=== PATIENT | female | born 1965 | race Caucasian/White ===

== ENCOUNTER 2016-11-23 11:34 | Inpatient (IN) | payer OTHER ==
[~2016-11-23] VITALS: Ht 160 cm; Wt 68.2 kg
[2016-11-23] MEDS ORDERED: SOD CHLORIDE 0.9% 1,000 ML IV STA (11:47)
[2016-11-23] MEDS ORDERED: ONDANSETRON 4 MG INJ IV STA (11:47)
[2016-11-23] MEDS ORDERED: morphine 4 MG/ML VIAL IV STA ×2 (11:47→12:20)
--- NOTE | 2016-11-23 11:56 | ERD ---
ER Documentation Chief Complaint Date/Time DATE: 11/23/16 TIME: 11:55 Chief Complaint ABDOMINAL PAIN WITH NAUSEA HPI Patient is a 51-year-old female who presents with sudden onset, constant, severe left flank pain radiating to the left inguinal area. Symptoms began 30 minutes ago. The patient states that she has an urge to urinate but has not been able to. She denies hematuria or dysuria. She denies fever or vomiting. ROS All systems reviewed and are negative except as per history of present illness. Medications Home Meds Active Scripts Cephalexin* (Cephalexin*) 500 Mg Capsule, 500 MG PO Q6 for 7 Days, #28 CAP Prov:DAMIÁN BARNES MD 11/23/16 Ibuprofen* (Motrin*) 400 Mg Tab, 400 MG PO Q6H Y for PAIN, #20 TAB Prov:DAMIÁN BARNES MD 11/23/16 Tamsulosin Hcl* (Flomax*) 0.4 Mg Cap.er.24h, 0.4 MG PO DAILY, #14 CAP Prov:DAMIÁN BARNES MD 11/23/16 Ondansetron (Ondansetron Odt) 4 Mg Tab.rapdis, 4 MG PO Q6H Y for NAUSEA AND/OR VOMITING, #15 TAB Prov:DAMIÁN BARNES MD 11/23/16 Oxycodone HCl/Acetaminophen (Percocet 5-325 mg Tablet) 1 Each Tablet, 1 EACH PO Q4H WHILE AWAKE, #16 TAB Prov:DAMIÁN BARNES MD 11/23/16 Allergies Allergies: Coded Allergies: No Known Allergy (Unverified , 11/23/16) PMhx/Soc Past medical history: Breast cancer, cholelithiasis Past surgical history: Mastectomy Social history: Smokes cigarettes, denies alcohol FmHx Family History: No coronary disease, No diabetes Physical Exam Vitals Vital Signs Date Time Temp Pulse Resp B/P Pulse Ox O2 Delivery O2 Flow Rate FiO2 11/23/16 14:05 97.8 50 20 158/78 100 11/23/16 11:38 97.0 59 20 203/93 100 Physical Exam Const: Alert, in moderate distress Head: Atraumatic Eyes: Normal Conjunctiva, No pallor, no icterus ENT: Normal External Ears, Nose and Mouth. Mucous membranes moist Neck: Full range of motion..~ No meningismus. Resp: Clear to auscultation bilaterally, No wheezes, no rales Cardio: Regular rate and rhythm, no murmurs Abd: Soft, non tender, non distended. Skin: No petechiae or rashes Back: No midline or flank tenderness Ext: No cyanosis, or edema Neur: Awake and alert, Cranial nerves II through XII intact bilaterally, strength and sensation full in 4 extremities. Psych: Normal Mood and Affect Result Diagram: 11/23/16 1200 11/23/16 1200 Results 24 hrs Laboratory Tests Test 11/23/16 12:00 11/23/16 12:35 White Blood Count 5.410^3/ul Red Blood Count 4.6810^6/ul Hemoglobin 11.8g/dl Hematocrit 37.6% Mean Corpuscular Volume 80.3fl Mean Corpuscular Hemoglobin 25.2pg Mean Corpuscular Hemoglobin Concent 31.4g/dl Red Cell Distribution Width 19.1% Platelet Count 56160^3/UL Mean Platelet Volume 9.6fl Neutrophils % 50.1% Lymphocytes % 37.1% Monocytes % 9.7% Eosinophils % 1.8% Basophils % 0.9% Nucleated Red Blood Cells % 0.0/100WBC Neutrophils # 2.710^3/ul Lymphocytes # 2.010^3/ul Monocytes # 0.510^3/ul Eosinophils # 0.110^3/ul Basophils # 0.110^3/ul Nucleated Red Blood Cells # 0.010^3/ul Sodium Level 140mmol/L Potassium Level 3.9mmol/L Chloride Level 107mmol/L Carbon Dioxide Level 22mmol/L Anion Gap 15 Blood Urea Nitrogen 8mg/dl Creatinine 0.78mg/dl Glucose Level 112mg/dl Calcium Level 10.0mg/dl Urine Color RED Urine Clarity CLOUDY Urine pH 6.0 Urine Specific [place] 1.013 Urine Ketones 1+mg/dL Urine Nitrite NEGATIVEmg/dL Urine Bilirubin NEGATIVEmg/dL Urine Urobilinogen NEGATIVEmg/dL Urine Leukocyte Esterase NEGATIVELeu/ul Urine Microscopic RBC > 182/HPF Urine Microscopic WBC > 182/HPF Urine Amorphous Crystals FEW/HPF Urine Bacteria FEW/HPF Urine Hemoglobin 3+mg/dL Urine Glucose NEGATIVEmg/dL Urine Total Protein 2+mg/dl Current Medications Medications (Trade) Dose Ordered Sig/Brendan Route PRN Reason Start Time Stop Time Status Last Admin Dose Admin Sodium Chloride (NS) 1,000 ml @ 1,000 mls/hr Q1H STAT IV 11/23/16 11:47 11/23/16 12:46 DC 11/23/16 12:00 Morphine Sulfate (morphine) 4 mg ONCE STAT IV 11/23/16 11:47 11/23/16 11:49 DC 11/23/16 11:59 Ondansetron HCl (Zofran Inj) 4 mg ONCE STAT IV 11/23/16 11:47 11/23/16 11:49 DC 11/23/16 12:00 Morphine Sulfate 4 mg 4 mg ONCE STAT IV 11/23/16 12:20 11/23/16 12:22 DC 11/23/16 12:26 Ceftriaxone Sodium (Rocephin) 50 ml @ 100 mls/hr ONCE ONCE IVPB 11/23/16 13:30 11/23/16 13:59 DC 11/23/16 14:00 Ketorolac Tromethamine (Toradol) 15 mg ONCE STAT IV 11/23/16 14:04 11/23/16 14:05 DC 11/23/16 14:13 Hydromorphone HCl (Dilaudid) 1 mg ONCE STAT IV 11/23/16 15:20 11/23/16 15:21 DC 11/23/16 15:26 Procedures/MDM MDM: Patient is a 51-year-old woman who presents with acute left lower quadrant pain and flank pain. The patient appears in significant distress. Symptoms are suggestive of kidney stone, and CT confirms. 4 mm stone. The patient was given multiple doses of IV analgesics without significant relief. She has evidence of UTI, but no fever or leukocytosis to suggest pyelonephritis I suspect lower tract infection concurrent with kidney stone. The patient was given a dose of antibiotics. A urine culture was sent. Given intractable pain , the patient will be admitted to observation for further pain control. I advised analgesics, antiemetics, Flomax and antibiotics at discharge. If pain is not able to be controlled, nonemergent urology consult may be indicated. Departure Diagnosis: Primary Impression: Ureterolithiasis Additional Impressions: UTI (urinary tract infection) Urinary tract infection type: site unspecified Hematuria presence: with hematuria Qualified Code: N39.0 - Urinary tract infection with hematuria, site unspecified Intractable pain Condition: DAMIÁN Gipson MD Nov 23, 2016 11:56
[2016-11-23 12:28] LABS: WHITE BLOOD COUNT 5.4 10^3/ul (4.8-10.8)
[2016-11-23 12:29] LABS: BASOPHIL # 0.1 10^3/ul (0.0-0.1); BASOPHILS % 0.9 % (0.0-2.0); EOSINOPHILS # 0.1 10^3/ul (0.0-0.5); EOSINOPHILS % 1.8 % (0.0-7.0); HEMATOCRIT 37.6 % (37.0-47.0); HEMOGLOBIN 11.8 g/dl (12.0-16.0); LYMPHOCYTES % 37.1 % (15.0-51.0); MEAN CORPUSCULAR HEMOGLOBIN 25.2 pg (29.0-33.0); MEAN CORPUSCULAR HGB CONC 31.4 g/dl (32.0-37.0); MEAN CORPUSCULAR VOLUME 80.3 fl (82.0-101.0); MEAN PLATELET VOLUME 9.6 fl (7.4-10.4); MONOCYTE # 0.5 10^3/ul (0.3-0.9); MONOCYTES % 9.7 % (0.0-11.0); NEUTROPHIL # 2.7 10^3/ul (1.6-7.5); NEUTROPHILS % 50.1 % (39.0-77.0); PLATELET COUNT 263 10^3/UL (140-415); RED BLOOD COUNT 4.68 10^6/ul (4.20-5.40); RED CELL DISTRIBUTION WIDTH 19.1 % (11.5-14.5)
[2016-11-23 12:46] LABS: CREATININE 0.78 mg/dl (0.44-1.00); POTASSIUM 3.9 mmol/L (3.5-5.1)
[2016-11-23 13:10] LABS: ADD UMIC YES; UR AMORPHOUS CRYSTAL FEW /HPF (NONE SEEN); UR ASCORBIC ACID NEGATIVE (NEGATIVE); UR BACTERIA FEW /HPF (NONE SEEN); UR BILIRUBIN (Dip) NEGATIVE (NEGATIVE); UR BLOOD (Dip) 3+ mg/dL (NEGATIVE); UR CLARITY CLOUDY (CLEAR); UR COLOR RED (YELLOW); UR GLUCOSE (Dip) NEGATIVE (NEGATIVE); UR KETONES (Dip) 1+ mg/dL (NEGATIVE); UR LEUKOCYTE ESTERASE (Dip) NEGATIVE Leu/ul (NEGATIVE); UR NITRITE (Dip) NEGATIVE (NEGATIVE); UR RBC > 182 /HPF (0-5); UR SPECIFIC GRAVITY (Dip) 1.013 (1.003-1.030); UR TOTAL PROTEIN (Dip) 2+ mg/dl (NEGATIVE); UR UROBILINOGEN (Dip) NEGATIVE (NEGATIVE)
[2016-11-23] MEDS ORDERED: CEFTRIAXONE 1 GM/50 ML (PMX) 50 ML IVPB ONE (13:30)
--- NOTE | 2016-11-23 13:34 | RADRPT ---
PROCEDURE: CT abdomen and pelvis without contrast. CLINICAL INDICATION: Abdominal pain. TECHNIQUE: CT scan of the abdomen and pelvis without contrast was performed on a multi-slice CT [facility] . Sagittal and coronal reformatted images were obtained from the axial source images. One or more of the following dose reduction techniques were used: - Automated exposure control. - Adjustment of the mA and/or kV according to patient size. - Use of iterative reconstruction technique. DLP 666.8 mGycm. CTDIvol 11.4 mGy COMPARISON: None FINDINGS: The lung bases are clear. Right-sided mastectomy changes are partially visualized. There is limited evaluation of the solid viscera from the lack of IV contrast. There is a stone in the proximal third of the left ureter just beyond the UPJ that measures 4 mm in this results in mild left-sided hydronephrosis and perinephric fat stranding. No other renal or uret eral calculi present with no right-sided hydronephrosis. There is normal density of the liver with no gross focal lesion or biliary ductal dilatation. The gallbladder has layering stones without surrounding inflammation The spleen is unremarkable without mass. The adrenal glands are within normal limits without mass. The pancreas is unremarkable without focal lesion or surrounding inflammatory changes. There is no bowel obstruction or focal bowel inflammation. The appendix is unremarkable. There is no free air or free fluid. There are no enlarged lymph nodes. The aorta is unremarkable and there is no acute osseous abnormality. Degenerative changes seen in th e lumbar spine. The uterus and adnexal structures are grossly unremarkable. IMPRESSION: Obstructing left-sided proximal ureteral stone measures 3 mm with mild left-sided hydronephrosis. No evidence of bowel obstruction or inflammation. There is no appendicitis. There is cholelithiasis without cholecystitis. RPTAT: AA .Bertha Romo MD, MD Date Time Electronically viewed and signed by .Bertha Romo MD, MD on 11/23/2016 13:34 .Shannen/
[2016-11-23] MEDS ORDERED: KETOROLAC 15 MG INJ IV STA (14:04)
[2016-11-23] MEDS ORDERED: TAMS-14 PO (15:16)
[2016-11-23] MEDS ORDERED: ONDA4TAB14 PO (15:16)
[2016-11-23] MEDS ORDERED: OXYC-279 PO (15:16)
[2016-11-23] MEDS ORDERED: CEPH500C PO (15:16)
[2016-11-23] MEDS ORDERED: IBUP400T22 PO (15:16)
[2016-11-23] MEDS ORDERED: HYDROmorphONE 1 MG/ML SYG IV STA (15:20)
[2016-11-23] MEDS ORDERED: ACETAMINOPHEN 325 MG TAB PO PRN (16:00)
[2016-11-23] MEDS ORDERED: ONDANSETRON 4 MG INJ IV PRN (16:00)
[2016-11-23 16:43] VITALS: TEMP 97.8
[2016-11-23 18:00] VITALS: BP 115/72; PULSE 55; RESP 16
[2016-11-23] MEDS ORDERED: hydrALAzine 20 MG INJ IV PRN (18:00)
[2016-11-23] MEDS ORDERED: ALBUTEROL/IPRATROPIUM (NEB) 3 ML AMP HHN PRN (18:00)
[2016-11-23] MEDS ORDERED: NACL 0.9% 3 ML SYG IV SCH (18:00)
[2016-11-23] MEDS ORDERED: HYDROCODONE/APAP (5/325) TAB PO PRN (18:00)
[2016-11-23] MEDS ORDERED: NITROGLYCERIN (SL) 0.4 MG TAB SL PRN (18:00)
[2016-11-23] MEDS ORDERED: NA PHOSPHATE/BIPHOS 133 ML ENEMA PR PRN (18:00)
[2016-11-23] MEDS ORDERED: LORAZEPAM 2 MG INJ IV PRN (18:00)
[2016-11-23] MEDS ORDERED: MAGNESIUM HYDROXIDE 30ML CUP PO PRN (18:00)
[2016-11-23] MEDS: morphine 2 MG INJ IV PRN ×2 (18:13→22:04)
[2016-11-23] MEDS: ONDANSETRON 4 MG INJ IV PRN (18:13)
[2016-11-23] MEDS: SOD CHLORIDE 0.9% 1,000 ML IV SCH (18:14)
[2016-11-23] MEDS: CEFTRIAXONE 1 GM/50 ML (PMX) 50 ML IVPB SCH (18:14)
[2016-11-23] MEDS: TAMSULOSIN (SR) 0.4 MG CAP PO SCH (18:33)
[2016-11-23 19:05] VITALS: BP 122/60; RESP 16
[2016-11-23 20:00] VITALS: Ht 160 cm; Wt 68.2 kg
[2016-11-23 20:25] LABS: INR 0.99; PROTIME 13.1 Sec (12.2-14.2)
[2016-11-23 20:26] LABS: PARTIAL THROMBOPLASTIN TIME 27.5 Sec (25.0-35.0)
[2016-11-23] MEDS: HEPARIN 5,000 UNIT/0.5 ML VIAL SC SCH (21:24)
--- NOTE | 2016-11-23 21:57 | HP ---
DATE OF ADMISSION: 11/23/2016 CHIEF COMPLAINT: Abdominal pain. Nausea. HISTORY OF PRESENT ILLNESS: A 51-year-old female with past medical history of breast cancer, status post mastectomy 20 years ago, gallstones and smoking history who presents with left flank pain and abdominal pain. The pain began earlier today, sudden onset, constant, severe. She had some nausea symptoms and also some nonbilious, nonbloody vomiting symptoms. She also had positive chills but no chest pain, no shortness of breath. No headaches or dizziness. No loss of consciousness. No diarrhea or constipation. She is also having difficulty urinating but denies any dysuria. She decided to come to the ER today. They did an imaging study in the ER, it showed an obstructing left- sided proximal ureteral stone measuring 3 mm with mild left-sided hydronephrosis but no evidence of any bowel obstruction or inflammation as well. The patient also had some hypertensive urgency when she came in likely secondary to the pain symptoms she was feeling. PAST MEDICAL HISTORY: As stated above. No prior history of any kidney stones. PAST SURGERY HISTORY: As stated above. She had a mastectomy. ALLERGIES: NO KNOWN DRUG ALLERGIES. MEDICATIONS: Keflex 500 mg q.6 hours, Flomax 0.4 mg daily, Motrin 400 mg q.6 h. p.r.n., Percocet 5/325, q.4 p.r.n., Zofran 4 mg p.o. q.6 h. p.r.n. FAMILY HISTORY: Noncontributory. SOCIAL HISTORY: She smokes 1-2 cigarettes a week. Denies any alcohol or IV drug abuse. TODAY VITAL SIGNS: T-max 97.8, pulse 50-59, respirations 20, blood pressure 158 to 203 systolic over 78 to 93 diastolic, sating at 100 percent room air. PHYSICAL EXAMINATION: GENERAL: Patient is lying in bed, somewhat lethargic and sleeping. Family at the bedside. No acute distress. HEENT: Pupils equal, round, react to light. Extraocular muscles intact. NECK: Supple. No thyromegaly. LUNGS: Clear to auscultation bilaterally. CARDIOVASCULAR: S1, S2. No rubs, gallops. ABDOMEN: Mild tenderness to palpation, left flank area. Otherwise, no rebound or guarding. Normal bowel sounds. MUSCULOSKELETAL: No lower extremity bilaterally. NEUROLOGIC: No focal deficits. DATA: Labs: CBC is normal. The basic metabolic panel is normal. UA shows 1+ ketones, negative nitrites, negative leukocyte esterase, few bacteria positive. We mentioned CT abdomen pelvis, results as mentioned above. ASSESSMENT AND PLAN: A 51-year-old female comes in with left flank pain, nausea, signs of kidney stone and hydronephrosis. 1. Left-sided kidney stone. Will admit the patient. Give her IV fluids and let her drink fluids as well. Give her Flomax and pain control medications. Given the UA is mildly positive we will also put on broad-spectrum antibiotics. Follow up final culture results. Hopefully patient can pass the stone. Pain control medications as well as antiemetics, as well check TSH, A1c, lipid panel. 2. History of breast cancer. Monitor for now. 3. Smoking history. Counseled on cessation. 4. Deep vein thrombosis prophylaxis. Heparin subcutaneous. Dictated By: Harjit Mckee MD /lily/hilary /Document#: [id number]
[2016-11-23 22:00] LABS: UR BILIRUBIN (Dip) NEGATIVE (NEGATIVE); UR BLOOD (Dip) 3+ mg/dL (NEGATIVE); UR CLARITY CLEAR (CLEAR); UR COLOR YELLOW (YELLOW); UR GLUCOSE (Dip) NEGATIVE (NEGATIVE); UR KETONES (Dip) 2+ mg/dL (NEGATIVE); UR LEUKOCYTE ESTERASE (Dip) NEGATIVE Leu/ul (NEGATIVE); UR NITRITE (Dip) NEGATIVE (NEGATIVE); UR SPECIFIC GRAVITY (Dip) 1.017 (1.003-1.030); UR TOTAL PROTEIN (Dip) NEGATIVE (NEGATIVE); UR UROBILINOGEN (Dip) NEGATIVE (NEGATIVE)
[2016-11-23 22:01] LABS: ADD UMIC YES; UR ASCORBIC ACID NEGATIVE (NEGATIVE); UR RBC 52 /HPF (0-5)
[2016-11-24 01:50] VITALS: BP 94/53; RESP 16
[2016-11-24 01:59] VITALS: BP 116/57; PULSE 56; RESP 18
[2016-11-24] MEDS: SOD CHLORIDE 0.9% 1,000 ML IV SCH ×2 (04:29→15:20)
[2016-11-24 05:17] LABS: BASOPHIL # 0.1 10^3/ul (0.0-0.1); BASOPHILS % 0.6 % (0.0-2.0); EOSINOPHILS % 0.4 % (0.0-7.0); HEMATOCRIT 31.2 % (37.0-47.0); HEMOGLOBIN 9.4 g/dl (12.0-16.0); LYMPHOCYTES # 1.4 10^3/ul (0.8-2.9); LYMPHOCYTES % 17.8 % (15.0-51.0); MEAN CORPUSCULAR HEMOGLOBIN 24.9 pg (29.0-33.0); MEAN CORPUSCULAR HGB CONC 30.1 g/dl (32.0-37.0); MEAN CORPUSCULAR VOLUME 82.5 fl (82.0-101.0); MEAN PLATELET VOLUME 9.9 fl (7.4-10.4); MONOCYTE # 0.9 10^3/ul (0.3-0.9); MONOCYTES % 11.4 % (0.0-11.0); NEUTROPHIL # 5.4 10^3/ul (1.6-7.5); NEUTROPHILS % 69.5 % (39.0-77.0); PLATELET COUNT 174 10^3/UL (140-415); RED BLOOD COUNT 3.78 10^6/ul (4.20-5.40); RED CELL DISTRIBUTION WIDTH 19.1 % (11.5-14.5); WHITE BLOOD COUNT 7.7 10^3/ul (4.8-10.8)
[2016-11-24 05:43] LABS: CALCIUM 8.1 mg/dl (8.4-10.2); CHOL/HDL RATIO 4.1 RATIO; MAGNESIUM 1.7 mg/dl (1.7-2.5); PHOSPHORUS 3.3 mg/dl (2.5-4.9); POTASSIUM 3.9 mmol/L (3.5-5.1)
[2016-11-24 07:23] LABS: THYROID STIMULATING HORMONE 0.366 MIU/L (0.465-4.680)
[2016-11-24 08:29] VITALS: BP 106/52; RESP 18
[2016-11-24] MEDS: TAMSULOSIN (SR) 0.4 MG CAP PO SCH (10:40)
[2016-11-24] MEDS: ONDANSETRON 4 MG INJ IV PRN ×2 (10:40→23:32)
[2016-11-24] MEDS: HEPARIN 5,000 UNIT/0.5 ML VIAL SC SCH ×2 (10:54→21:53)
[2016-11-24] MEDS ORDERED: morphine 4 MG/ML VIAL IV PRN ×2 (12:00)
--- NOTE | 2016-11-24 12:10 | PN ---
Date/Time of Note Date/Time of Note DATE: 11/24/16 TIME: 12:07 Assessment/Plan VTE Prophylaxis VTE Prophylaxis Intervention: heparin Lines/Catheters IV [facility] Peripheral IV Urinary Cath still in place: No Assessment/Plan Chief Complaint/Hosp Course ASSESSMENT AND PLAN: 51-year-old female comes in with left flank pain, nausea, signs of kidney stone and hydronephrosis. 1. Left-sided kidney stone-continue IV fluids and encourage her drink fluids as well. -New Flomax and pain control medications. - Given the UA is mildly positive we also continue broad-spectrum antibiotics. Follow up final culture results. Hopefully patient can pass the stone. -Antiemetic medicines 2. History of breast cancer. Monitor for now. 3. Smoking history. Counseled on cessation. 4. Deep vein thrombosis prophylaxis. Heparin subcutaneous. Problems: Subjective 24 Hr Interval Summary Free Text/Dictation Patient has less flank pain, but complaining of nausea symptoms. Exam/Review of Systems Vital Signs Vitals Vital Signs Date Time Temp Pulse Resp B/P Pulse Ox O2 Delivery O2 Flow Rate FiO2 11/24/16 08:29 98.4 64 18 106/52 96 11/24/16 01:59 Room Air Intake and Output 11/23/16 11/23/16 11/24/16 15:00 23:00 07:00 Intake Total 50 ml 1900 ml Balance 50 ml 1900 ml Exam GENERAL: Patient is lying in bed, somewhat lethargic, but answering questions appropriately HEENT: Pupils equal, round, react to light. Extraocular muscles intact. NECK: Supple. No thyromegaly. LUNGS: Clear to auscultation bilaterally. CARDIOVASCULAR: S1, S2. No rubs, gallops. ABDOMEN: Mild tenderness to palpation, left flank area. Otherwise, no rebound or guarding. Normal bowel sounds. MUSCULOSKELETAL: No lower extremity bilaterally. NEUROLOGIC: No focal deficits. Results Result Diagram: 11/24/16 0436 11/24/16 0436 Results 24 hrs Laboratory Tests Test 11/23/16 12:35 11/23/16 19:55 11/23/16 20:00 11/24/16 04:36 Urine Color RED YELLOW Urine Clarity CLOUDY A CLEAR Urine pH 6.0 6.0 Urine Specific [place] 1.013 1.017 Urine Ketones 1+ H 2+ H Urine Nitrite NEGATIVE NEGATIVE Urine Bilirubin NEGATIVE NEGATIVE Urine Urobilinogen NEGATIVE NEGATIVE Urine Leukocyte Esterase NEGATIVE NEGATIVE Urine Microscopic RBC > 182 H 52 H Urine Microscopic WBC > 182 H 5 Urine Amorphous Crystals FEW A Urine Bacteria FEW A Urine Hemoglobin 3+ H 3+ H Urine Glucose NEGATIVE NEGATIVE Urine Total Protein 2+ H NEGATIVE Prothrombin Time 13.1 Prothrombin Time Ratio 1.0 INR International Normalized Ratio 0.99 Activated Partial Thromboplast Time 27.5 Free Thyroxine 1.09 White Blood Count 7.7 # Red Blood Count 3.78 L Hemoglobin 9.4 #L Hematocrit 31.2 L Mean Corpuscular Volume 82.5 Mean Corpuscular Hemoglobin 24.9 L Mean Corpuscular Hemoglobin Concent 30.1 L Red Cell Distribution Width 19.1 H Platelet Count 174 # Mean Platelet Volume 9.9 Neutrophils % 69.5 Lymphocytes % 17.8 Monocytes % 11.4 H Eosinophils % 0.4 Basophils % 0.6 Nucleated Red Blood Cells % 0.0 Neutrophils # 5.4 Lymphocytes # 1.4 Monocytes # 0.9 Eosinophils # 0.0 Basophils # 0.1 Nucleated Red Blood Cells # 0.0 Sodium Level 139 Potassium Level 3.9 Chloride Level 112 H Carbon Dioxide Level 22 Anion Gap 9 # Blood Urea Nitrogen 9 Creatinine 1.00 Glucose Level 87 Hemoglobin A1c 5.6 Calcium Level 8.1 L Phosphorus Level 3.3 Magnesium Level 1.7 Triglycerides Level 124 Cholesterol Level 182 LDL Cholesterol, Calculated 113 HDL Cholesterol 44 Cholesterol/HDL Ratio 4.1 Thyroid Stimulating Hormone (TSH) 0.366 L Medications Medications Current Medications Ondansetron HCl (Zofran Inj) 4 mg Q6H PRN IV NAUSEA AND/OR VOMITING Last administered on 11/24/16t 10:40; Admin Dose 4 MG; Start 11/23/16 at 18:00 Acetaminophen (Tylenol Tab) 650 mg Q6H PRN PO PAIN LEVEL 1-3 OR FEVER; Start 11/23/16 at 18:00 Acetaminophen/ Hydrocodone Bitart ([place] (5/325)) 1 tab Q6H PRN PO MODERATE PAIN LEVEL 4-6; Start 11/23/16 at 18:00 Docusate Sodium (Colace) 100 mg Q12H PRN PO CONSTIPATION; Start 11/23/16 at 18: 00 Magnesium Hydroxide (Milk Of Mag) 30 ml DAILY PRN PO CONSTIPATION; Start at 18:00 Sodium Biphosphate/ Sodium Phosphate (Fleet Enema) 133 ml DAILY PRN [place] CONSTIPATION; Start 11/23/16 at 18:00 Heparin Sodium (Porcine) (Heparin (5000 Units/0.5 ml)) 5,000 unit Q12 SC Last administered on 11/24/16 10:54; Admin Dose 5,000 UNIT; Start 11/23/16 at 21:00 Lorazepam 0.5 mg 0.5 mg Q6H PRN IV ANXIETY; Start 11/23/16 at 18:00 Sodium Chloride (NS) 1,000 ml @ 100 mls/hr Q10H IV Last administered on 04:29; Admin Dose 100 MLS/HR; Start 11/23/16 at 17:44 Hydralazine HCl 10 mg 10 mg Q6H PRN IV ELEVATED BLOOD PRESSURE; Start 11/23/16 at 18:00 Ceftriaxone Sodium (Rocephin) 50 ml @ 100 mls/hr Q24H IVPB Last administered on 11/23/16 18:14; Admin Dose 100 MLS/HR; Start 11/23/16 at 18:00 Nitroglycerin (Nitroglycerin (Sl Tab) 0.4 Mg) 1 tab Q5M PRN SL ANGINA; Start 11/23/16 at 18:00 Tamsulosin HCl (Flomax) 0.4 mg DAILY PO Last administered on 11/24/16 10:40; Admin Dose 0.4 MG; Start 11/23/16 at 18:00 Morphine Sulfate (morphine) 3 mg Q3H PRN IV SEVERE PAIN LEVEL 7-10; Start 12/01 at 12:00 Trimethobenzamide HCl (Tigan) 200 mg Q6H PRN IM NAUSEA AND/OR VOMITING; Start 11/24/16 at 12:30; Status ZORAIDA GODWIN Nov 24, 2016 12:09
[2016-11-24] MEDS ORDERED: TRIMETHOBENZAMIDE 100 MG/ML VIAL IM PRN (12:30)
[2016-11-24 15:00] VITALS: BP 104/53; RESP 18
[2016-11-24] MEDS: ACETAMINOPHEN 325 MG TAB PO PRN (15:31)
[2016-11-24] MEDS: CEFTRIAXONE 1 GM/50 ML (PMX) 50 ML IVPB SCH (17:19)
[2016-11-24 19:35] VITALS: BP 110/53; RESP 19
[2016-11-24] MEDS: DOCUSATE SODIUM 100 MG CAP PO PRN (21:33)
[2016-11-24] MEDS ORDERED: HYDROmorphONE 2 MG/ML SYG IV ONE (23:27)
[2016-11-24] MEDS ORDERED: HYDROmorphONE 1 MG/ML SYG IV PRN (23:30)
[2016-11-25] MEDS: SOD CHLORIDE 0.9% 1,000 ML IV SCH ×3 (01:24→20:45)
[2016-11-25 01:57] VITALS: BP 130/72; RESP 20
[2016-11-25 05:06] LABS: BASOPHILS % 0.3 % (0.0-2.0); EOSINOPHILS % 0.5 % (0.0-7.0); HEMATOCRIT 30.6 % (37.0-47.0); HEMOGLOBIN 9.2 g/dl (12.0-16.0); LYMPHOCYTES # 1.1 10^3/ul (0.8-2.9); LYMPHOCYTES % 15.5 % (15.0-51.0); MEAN CORPUSCULAR HEMOGLOBIN 24.9 pg (29.0-33.0); MEAN CORPUSCULAR HGB CONC 30.1 g/dl (32.0-37.0); MEAN CORPUSCULAR VOLUME 82.9 fl (82.0-101.0); MONOCYTE # 0.8 10^3/ul (0.3-0.9); MONOCYTES % 10.3 % (0.0-11.0); NEUTROPHIL # 5.3 10^3/ul (1.6-7.5); NEUTROPHILS % 73.1 % (39.0-77.0); PLATELET COUNT 163 10^3/UL (140-415); RED BLOOD COUNT 3.69 10^6/ul (4.20-5.40); RED CELL DISTRIBUTION WIDTH 19.3 % (11.5-14.5); WHITE BLOOD COUNT 7.3 10^3/ul (4.8-10.8)
[2016-11-25 05:25] LABS: MAGNESIUM 2.2 mg/dl (1.7-2.5); PHOSPHORUS 2.7 mg/dl (2.5-4.9)
[2016-11-25 05:27] LABS: CALCIUM 8.1 mg/dl (8.4-10.2); CREATININE 1.14 mg/dl (0.44-1.00); POTASSIUM 3.7 mmol/L (3.5-5.1)
[2016-11-25 07:42] VITALS: BP 128/64; RESP 18
[2016-11-25] MEDS: TAMSULOSIN (SR) 0.4 MG CAP PO SCH ×2 (09:38→22:09)
[2016-11-25] MEDS: HEPARIN 5,000 UNIT/0.5 ML VIAL SC SCH ×2 (10:02→22:33)
--- NOTE | 2016-11-25 12:57 | PN ---
Date/Time of Note Date/Time of Note DATE: 11/25/16 TIME: 12:54 Assessment/Plan VTE Prophylaxis VTE Prophylaxis Intervention: heparin Lines/Catheters IV [facility] Type ([facility]): Peripheral IV Urinary Cath still in place: No Assessment/Plan Chief Complaint/Hosp Course ASSESSMENT AND PLAN: 51-year-old female comes in with left flank pain, nausea, signs of kidney stone and hydronephrosis. 1. Left-sided kidney stone- -continue IV fluids and encourage her drink fluids as well. Flomax and pain control medications, will get CT scan as well. Start muscle relaxant, increase Dilaudid medications as well. Check bladder scan, get urology consult. - Given the UA is mildly positive we also continue broad-spectrum antibiotics. Follow up final culture results. Hopefully patient can pass the stone. -Antiemetic medicines 2. History of breast cancer. Monitor for now. 3. Smoking history. Counseled on cessation. 4. Deep vein thrombosis prophylaxis. Heparin subcutaneous. 5. ARF : IVF's, renal consult. Problems: Subjective 24 Hr Interval Summary Free Text/Dictation Severe flank pain this morning. Also did complaining of decreased urine output. Exam/Review of Systems Vital Signs Vitals Vital Signs Date Time Temp Pulse Resp B/P Pulse Ox O2 Delivery O2 Flow Rate FiO2 11/25/16 08:00 Nasal Cannula 2.0 11/25/16 07:42 98.2 72 18 128/64 92 Intake and Output 11/24/16 11/24/16 11/25/16 15:00 23:00 07:00 Intake Total 850 ml 240 ml Output Total 1050 ml 600 ml Balance -200 ml -360 ml Exam GENERAL: Patient is lying in bed, writhing in pain HEENT: Pupils equal, round, react to light. Extraocular muscles intact. NECK: Supple. No thyromegaly. LUNGS: Clear to auscultation bilaterally. CARDIOVASCULAR: S1, S2. No rubs, gallops. ABDOMEN: +tenderness to palpation, left flank area. Otherwise, no rebound or guarding. Normal bowel sounds. MUSCULOSKELETAL: No lower extremity bilaterally. NEUROLOGIC: No focal deficits. Results Result Diagram: 11/25/16 0437 11/25/16 0437 Results 24 hrs Laboratory Tests Test 11/25/16 04:37 White Blood Count 7.3 Red Blood Count 3.69 L Hemoglobin 9.2 L Hematocrit 30.6 L Mean Corpuscular Volume 82.9 Mean Corpuscular Hemoglobin 24.9 L Mean Corpuscular Hemoglobin Concent 30.1 L Red Cell Distribution Width 19.3 H Platelet Count 163 Mean Platelet Volume 10.0 Neutrophils % 73.1 Lymphocytes % 15.5 Monocytes % 10.3 Eosinophils % 0.5 Basophils % 0.3 Nucleated Red Blood Cells % 0.0 Neutrophils # 5.3 Lymphocytes # 1.1 Monocytes # 0.8 Eosinophils # 0.0 Basophils # 0.0 Nucleated Red Blood Cells # 0.0 Sodium Level 140 Potassium Level 3.7 Chloride Level 113 H Carbon Dioxide Level 24 Anion Gap 7 L Blood Urea Nitrogen 7 Creatinine 1.14 H Glucose Level 106 Calcium Level 8.1 L Phosphorus Level 2.7 Magnesium Level 2.2 Medications Medications Current Medications Acetaminophen (Tylenol Tab) 650 mg Q6H PRN PO PAIN LEVEL 1-3 OR FEVER Last administered on 11/24/16 15:31; Admin Dose 650 MG; Start 11/23/16 at 18:00 Acetaminophen/ Hydrocodone Bitart ([place] (5/325)) 1 tab Q6H PRN PO MODERATE PAIN LEVEL 4-6; Start 11/23/16 at 18:00 Docusate Sodium (Colace) 100 mg Q12H PRN PO CONSTIPATION Last administered on 11/24/16 21:33; Admin Dose 100 MG; Start 11/23/16 at 18:00 Magnesium Hydroxide (Milk Of Mag) 30 ml DAILY PRN PO CONSTIPATION Last administered on 11/24/16 21:33; Admin Dose 30 ML; Start 11/23/16 at 18:00 Sodium Biphosphate/ Sodium Phosphate (Fleet Enema) 133 ml DAILY PRN [place] CONSTIPATION; Start 11/23/16 at 18:00 Heparin Sodium (Porcine) (Heparin (5000 Units/0.5 ml)) 5,000 unit Q12 SC Last administered on 11/25/16 10:02; Admin Dose 5,000 UNIT; Start 11/23/16 at 21:00 Lorazepam 0.5 mg 0.5 mg Q6H PRN IV ANXIETY Last administered on 11/24/16 23: 16; Admin Dose 0.5 MG; Start 11/23/16 at 18:00 Sodium Chloride (NS) 1,000 ml @ 125 mls/hr Q8H IV Last administered on 11:33; Admin Dose 100 MLS/HR; Start 11/23/16 at 17:44 Hydralazine HCl 10 mg 10 mg Q6H PRN IV ELEVATED BLOOD PRESSURE; Start 11/23/16 at 18:00 Ceftriaxone Sodium (Rocephin) 50 ml @ 100 mls/hr Q24H IVPB Last administered on 11/24/16 17:19; Admin Dose 100 MLS/HR; Start 11/23/16 at 18:00 Nitroglycerin (Nitroglycerin (Sl Tab) 0.4 Mg) 1 tab Q5M PRN SL ANGINA; Start 11/23/16 at 18:00 Tamsulosin HCl (Flomax) 0.4 mg DAILY PO Last administered on 11/25/16 09:38; Admin Dose 0.4 MG; Start 11/23/16 at 18:00 Morphine Sulfate (morphine) 3 mg Q3H PRN IV SEVERE PAIN LEVEL 7-10 Last administered on 11/24/16 22:51; Admin Dose 3 MG; Start 11/24/16 at 12:00 Trimethobenzamide HCl (Tigan) 200 mg Q6H PRN IM NAUSEA AND/OR VOMITING; Start 11/24/16 at 12:30 Hydromorphone HCl (Dilaudid) 2 mg Q3 PRN IV PAIN; Start 11/25/16 at 12:30 Cyclobenzaprine HCl 10 mg 10 mg TID PO ; Start 11/25/16 at 13:00 Ondansetron HCl/ Sodium Chloride (Zofran Inj/NS) 54 ml @ 216 mls/hr Q6H PRN IV NAUSEA AND/OR VOMITING; Start 11/25/16 at 13:00 ZORAIDA BANUELOS Nov 25, 2016 12:57
[2016-11-25] MEDS ORDERED: FUROSEMIDE 20 MG INJ IV ONE (13:00)
[2016-11-25] MEDS ORDERED: BARIUM SULF 2% 450 ML BTL (BERRY SMOOTHIE) PO ONE (13:00)
[2016-11-25] MEDS: CYCLOBENZAPRINE 10 MG TAB PO SCH ×2 (13:00→21:00)
[2016-11-25] MEDS: HYDROmorphONE 2 MG/ML SYG IV PRN ×2 (13:10→18:11)
[2016-11-25 13:47] VITALS: BP 143/68; RESP 18
--- NOTE | 2016-11-25 14:18 | RADRPT ---
PROCEDURE: CT ABDOMEN AND PELVIS WITHOUT CONTRAST. CLINICAL INDICATION: Abdominal pain TECHNIQUE: CT scan of the abdomen and pelvis without contrast was performed on a multidetector hig h-resolution CT scanner. The patient was scanned without intravenous contrast. Coronal and sagittal reformatted images were obtained from the axial source images. Images were reviewed on a high-resol [employer] PACS workstation. The total exam CTDI equals 12.8 is mGy and the total exam DLP equals 771.4 m Gy-cm. One or more of the following dose reduction techniques were used: Automated exposure control. Adjustment of the mA and/or kV according to patient size. Use of iterative reconstruction technique. COMPARISON: November 23, 2016 FINDINGS: CT abdomen: Bilateral lower lobe infiltrates are noted. The heart size is within normal limits. There is no sign ificant pericardial effusion. Hepatic morphology is within limits. The gallbladder is distended, containing multiple gallstones. T he common duct is normal size. No evidence of intrahepatic or extra hepatic duct dilatation. The spleen is enlarged. The pancreas is within normal limits. Both adrenal glands are within limits. Both kidneys are and normal anatomic position. There is left renal enlargement and mild left-sided h ydronephrosis and left perinephric and periureteric stranding, secondary to a to 3 mm stone within t he left UVJ. The visualized GI tract demonstrate normal caliber loops of small and large bowel. No evidence of kelly wel obstruction. The appendix is within normal limits. The unenhanced aorta is unremarkable. No significant retroperitoneal lymphadenopathy. CT pelvis: Bladder is within normal limits. The uterus is identified, containing fluid within the endometrial c anal. Free fluid in the pelvis. No significant pelvic lymphadenopathy. The visualized osseous structures appears to within normal limits. IMPRESSION: 1. Enlarged left kidney with left-sided hydronephrosis and left periureteric and perinephric fat str anding, secondary to a 2-3 mm stone within the left UVJ. This has migrated since prior examination. Previously this was located within the left proximal ureter. 2. Interval development of bilateral lower lobe infiltrates and small pleural effusions. Cannot excl ude pneumonia in the appropriate clinical setting. Correlate clinically. 3. No evidence of bowel obstruction. The appendix is within normal limits. 4. Cholelithiasis. 5. Splenomegaly. RPTAT: AAPP Isabel Hidalgo Physician Date Time Electronically viewed and signed by Isabel Hidalgo Physician on 11/25/2016 14:17 JL/
[2016-11-25] MEDS ORDERED: ONDANSETRON 4 MG INJ IV PRN (18:00)
[2016-11-25] MEDS: CEFTRIAXONE 1 GM/50 ML (PMX) 50 ML IVPB SCH (18:04)
--- NOTE | 2016-11-25 19:41 | QN ---
Documentation Comment [id number] A/P COLLEEN RENAL COLIC PLAN IV FLUID LASIX FLOMAX PAIN MEDS ISAURA HAINES MD Nov 25, 2016 19:41
[2016-11-25 21:12] VITALS: BP 118/56; RESP 20
[2016-11-26] MEDS: HYDROmorphONE 2 MG/ML SYG IV PRN ×2 (00:34→09:01)
[2016-11-26 05:17] LABS: BASOPHILS % 0.4 % (0.0-2.0); EOSINOPHILS % 0.1 % (0.0-7.0); HEMATOCRIT 29.5 % (37.0-47.0); LYMPHOCYTES % 12.4 % (15.0-51.0); MEAN CORPUSCULAR HEMOGLOBIN 25.1 pg (29.0-33.0); MEAN CORPUSCULAR HGB CONC 30.5 g/dl (32.0-37.0); MEAN CORPUSCULAR VOLUME 82.2 fl (82.0-101.0); MEAN PLATELET VOLUME 9.7 fl (7.4-10.4); MONOCYTE # 0.7 10^3/ul (0.3-0.9); MONOCYTES % 8.2 % (0.0-11.0); NEUTROPHIL # 6.2 10^3/ul (1.6-7.5); NEUTROPHILS % 78.5 % (39.0-77.0); PLATELET COUNT 166 10^3/UL (140-415); RED BLOOD COUNT 3.59 10^6/ul (4.20-5.40); RED CELL DISTRIBUTION WIDTH 18.6 % (11.5-14.5); WHITE BLOOD COUNT 7.9 10^3/ul (4.8-10.8)
[2016-11-26] MEDS: DOCUSATE SODIUM 100 MG CAP PO PRN (05:30)
[2016-11-26] MEDS: SOD CHLORIDE 0.9% 1,000 ML IV SCH ×3 (05:32→18:21)
[2016-11-26] MEDS: ONDANSETRON INJ 8 MG in SOD CHLORIDE 0.9% 50 ML IV PRN ×2 (05:37→21:46)
[2016-11-26 05:41] LABS: ALBUMIN 2.8 g/dl (3.3-4.9); ALBUMIN/GLOBULIN RATIO 0.9; CALCIUM 8.4 mg/dl (8.4-10.2); POTASSIUM 3.7 mmol/L (3.5-5.1); TOTAL PROTEIN 5.9 g/dl (6.1-8.1)
[2016-11-26 07:10] VITALS: BP 118/56; RESP 19
--- NOTE | 2016-11-26 08:41 | RADRPT ---
PROCEDURE: XR Abdomen. CLINICAL INDICATION: Left flank pain. TECHNIQUE: AP supine abdomen x-ray. COMPARISON: CT scan of the abdomen and pelvis dated 11/25/2016 which demonstrated an obstructing c alculus at the left ureterovesicle junction. FINDINGS: The bowel gas pattern is normal with no evidence of obstruction. As seen on prior CT scan, there is a 0.2 cm calculus overlying the left ureterovesicle junction. There is no other urinary tract calculus. There is a gallstone in the right upper quadrant. The osseus structures are unremarkable. IMPRESSION: 1. Calculus overlying the left ureteral vesicle junction measuring 0.2 cm. 2. Gallstone. 3. Otherwise unremarkable study. RPTAT: QQ .Fermin Poole MD, MD Date Time Electronically viewed and signed by .Fermin Poole MD, on 11/26/2016 08:40 .R/
--- NOTE | 2016-11-26 08:46 | CONS ---
DATE OF ADMISSION: 11/25/2016 DATE OF CONSULTATION: 11/25/2016 REASON FOR CONSULTATION: Left ureteral stone. REQUESTING PHYSICIAN: Dr. Mckee. HISTORY OF PRESENT ILLNESS: This is a 51-year-old female who presented to the hospital with abdomin al pain with nausea and vomiting and underwent a CT scan of the abdomen and pelvis, was found to hav e a 3 mm stone. Initially it was in the left upper ureter. At the time she did have a CT scan on , on the date of admission and that the stone was in the upper ureter. However, she continue d to have severe pain and today she had a CT scan which showed the stone at the left ureterovesical junction. The patient denies any prior history of kidney stone and she is a 2 para 2 and th e patient has a history of right breast cancer. She is status post right mastectomy about 20 years ago. There was no need for chemotherapy or radiation therapy. The patient has been feeling the urge to urinate frequently and this is because of the stone in the distal ureter. PAST MEDICAL HISTORY: As above. PAST SURGICAL HISTORY: Mastectomy, right side. ALLERGIES: THE PATIENT HAS NO KNOWN DRUG ALLERGIES. SOCIAL HISTORY: She smokes 1 to 2 cigarettes a week. No alcohol abuse. No drug abuse. As mentione d earlier, she is a 2, para 2 and she has 2 children. PHYSICAL EXAMINATION GENERAL: Revealed a 51-year-old female who at the present is drowsy. She just got pain medication about an hour and a half ago. VITAL SIGNS: Show that temperature is 98.8, pulse is 89, respiration 18, blood pressure 143/68. Th e neck is supple. CHEST: The chest shows scar from the right radical mastectomy. ABDOMEN: The abdomen is soft. There is no abdominal mass palpable. She is tender over the left fla nk area. PELVIC: She does have her periods now, but there is no tenderness in the pelvis. EXTREMITIES: Normal. LABORATORY DATA: Her CBC shows a white count of 7.3, hemoglobin 9.2, hematocrit 30.6. BUN is 7, cr eatinine 1.14. The creatinine was 1.0 on admission and on the day of admission, it was 0.78. Becaus e of the obstruction by the stone, her creatinine has gone up. Urine culture did show yeast. MEDICATIONS: The patient is on Tamsulosin, Flexeril, Zofran, Dilaudid, Tigan, morphine sulphate, he lisandro subq, milk of magnesia p.r.n., Fleet Enema p.r.n., Colace and ceftriaxone. IMAGING STUDIES: Again the CT scan that she had today and was reported as enlarged left kidney with left-sided hydronephrosis and left periureteric and perinephric fat stranding secondary to a [address] one within the left ureterovesical junction. The stone has migrated since prior examination. Previ ously this stone was located in the proximal left ureter. She does have interval development of lyssa ateral lower lobe infiltrate and small pleural effusions. Cannot exclude pneumonia and no evidence o f bowel obstruction. The appendix was normal limits. She has cholelithiasis and splenomegaly. IMPRESSION: Distal left ureteral stone at the ureterovesical junction. This stone is about 3 mm. The patient should be able to pass it on her own. RECOMMENDATION: To continue to give her Flomax. Continue the antibiotic, strain her urine, do a KU B tonight and another KUB tomorrow and see if we could see the stone on a plain film. Then if she co ntinues to have pain and the kidney function continued to deteriorate, then we could do a cystoscopy , ureteroscopy and remove the stone. I will follow her urological problem with you. I do thank you for allowing me to help in her care. Dictated By: NIEEVS SOMMERS/BERNARDO Conf#: [id number] DID#: [id number]
--- NOTE | 2016-11-26 09:09 | CONS ---
DATE OF ADMISSION: 11/25/2016 DATE OF CONSULTATION: TYPE OF CONSULTATION: Nephrology. Thank you, Dr. Mckee, for kindly asking me to see this patient in nephrology consultation. HISTORY OF PRESENT ILLNESS: The patient is a 51-year-old female who has a history of kidney stone, presented to this hospital complaining of flank pain, nausea, vomiting and also denies any dysuria or hematuria at this point, noted to have a ureteral stone and elevated BUN and creatinine, so nephrology consultation requested. PAST MEDICAL HISTORY: Positive for breast cancer, status post mastectomy, history of gallstones. ALLERGY HISTORY: NEGATIVE. FAMILY HISTORY: Positive for kidney stones. SOCIAL HISTORY: Negative at this point. MEDICATION HISTORY: The patient is currently on: 1. Rocephin. 2. Zofran. 3. The patient is on Tylenol. 4. Albuterol. 5. ferous sulfate. 6. Flexeril 7. Lasix once. 8. Heparin. 9. Hydralazine. 10. Lorazepam. 11. Magnesium oxide. 12. Saline at 125 mL an hour. 13. Nitroglycerin. 14. Flomax. 15. Tigan. REVIEW OF SYSTEMS: HEENT: Unremarkable. RESPIRATORY: Unremarkable. CARDIOVASCULAR: Unremarkable. ABDOMEN: Complaining of flank pain. No dysuria, hematuria. EXTREMITIES: Unremarkable. CENTRAL NERVOUS SYSTEM: Unremarkable. PHYSICAL EXAMINATION: GENERAL: The patient is awake, alert, resting. VITAL SIGNS: Pulse 69, blood pressure 140/68. HEAD: Atraumatic, normocephalic. Pupils are equal, reactive to light. NECK: Supple. No JVD. LUNGS: Clear. CARDIOVASCULAR: S1, S2 are normal. ABDOMEN: Soft, nontender. Bowel sounds present. No palpable mass or hepatosplenomegaly. No guarding, rebound tenderness. EXTREMITIES: No cyanosis, clubbing or edema. CENTRAL NERVOUS SYSTEM: The patient is awake, alert, no focal deficit. LABORATORY DATA: Sodium 139, potassium 3.9, BUN of 9, creatinine 1.0 and now patient's BUN is 7, creatinine is 1.14. The patient had a urinalysis which shows RBCs and WBCs positive. The patient's CT scan shows obstructing left- sided proximal ureteral stone measuring 3 mm with mild left-sided hydronephrosis. The patient's repeat CT scan shows enlarged left kidney with left-sided hydronephrosis and left chelsey-ureteric and perinephric fat stranding, 2 to 3 mm stone within the left UVJ junction. This _ No evidence of obstruction. IMPRESSION: 1. The patient has renal colic. 2. Left ureteral stone. 3. Acute kidney injury leading to hydronephrosis and kidney stone. 4. The patient has hematuria. PLAN: To continue IV fluid and continue pain medications, also bowel care. The patient will have IV fluid as well as intermittent Lasix, Flomax does will be increased. Neurology consultation has been requested by Dr. Mckee. The patient's electrolytes will be monitored. Thank you, Dr. Mckee, for kindly asking me to see this patient in nephrology consultation. Dictated By: ISAURA BROWN/BERNARDO Conf#: [id number] DID#: [id number] MTDD
[2016-11-26] MEDS: TAMSULOSIN (SR) 0.4 MG CAP PO SCH ×2 (09:59→21:45)
[2016-11-26] MEDS: CYCLOBENZAPRINE 10 MG TAB PO SCH ×4 (09:59→21:45)
[2016-11-26] MEDS: HEPARIN 5,000 UNIT/0.5 ML VIAL SC SCH ×2 (10:06→21:50)
--- NOTE | 2016-11-26 12:02 | PN ---
Date/Time of Note Date/Time of Note DATE: 11/26/16 TIME: 11:59 Assessment/Plan VTE Prophylaxis VTE Prophylaxis Intervention: heparin Lines/Catheters IV C[facility]ter Type (from [facility]): Peripheral IV Urinary Cath still in place: No Assessment/Plan Chief Complaint/Hosp Course ASSESSMENT AND PLAN: 51-year-old female comes in with left flank pain, nausea, signs of kidney stone and hydronephrosis. 1. Left-sided kidney stone- -continue IV fluids and encourage her drink fluids as well. -Continue Flomax and pain control medications, CT and KUB results noted. Continue muscle relaxant as needed, Dilaudid Dilaudid medications as well. Will discuss with urology team about whether to perform cystoscopy at this point or continue medical treatment - continue broad-spectrum antibiotics. Follow up final culture results. Hopefully patient can pass the stone. -Antiemetic medicines 2. History of breast cancer. Monitor for now. 3. Smoking history. Counseled on cessation. 4. Deep vein thrombosis prophylaxis. Heparin subcutaneous. 5. ARF improved, continue: IVF's, f/u renal consult rec's Problems: Subjective 24 Hr Interval Summary Free Text/Dictation Patient still having some left flank pain, but relieved with Dilaudid. Seen by renal and urology team yesterday. KUB performed today, results noted. Exam/Review of Systems Vital Signs Vitals Vital Signs Date Time Temp Pulse Resp B/P Pulse Ox O2 Delivery O2 Flow Rate FiO2 11/26/16 07:10 98.0 76 19 118/56 98 11/25/16 08:00 Nasal Cannula 2.0 Intake and Output 11/25/16 11/25/16 11/26/16 15:00 23:00 07:00 Intake Total 3400 ml Output Total 1150 ml Balance 3400 ml -1150 ml Exam GENERAL: Patient is lying in bed, writhing in pain HEENT: Pupils equal, round, react to light. Extraocular muscles intact. NECK: Supple. No thyromegaly. LUNGS: Clear to auscultation bilaterally. CARDIOVASCULAR: S1, S2. No rubs, gallops. ABDOMEN: +tenderness to palpation, left flank area. Otherwise, no rebound or guarding. Normal bowel sounds. MUSCULOSKELETAL: No lower extremity bilaterally. NEUROLOGIC: No focal deficits. Results Result Diagram: 10/12/17 0421 10/12/17 0421 Results 24 hrs Laboratory Tests Test 11/26/16 04:21 White Blood Count 7.9 Red Blood Count 3.59 L Hemoglobin 9.0 L Hematocrit 29.5 L Mean Corpuscular Volume 82.2 Mean Corpuscular Hemoglobin 25.1 L Mean Corpuscular Hemoglobin Concent 30.5 L Red Cell Distribution Width 18.6 H Platelet Count 166 Mean Platelet Volume 9.7 Neutrophils % 78.5 H Lymphocytes % 12.4 L Monocytes % 8.2 Eosinophils % 0.1 Basophils % 0.4 Nucleated Red Blood Cells % 0.0 Neutrophils # 6.2 Lymphocytes # 1.0 Monocytes # 0.7 Eosinophils # 0.0 Basophils # 0.0 Nucleated Red Blood Cells # 0.0 Sodium Level 136 Potassium Level 3.7 Chloride Level 106 Carbon Dioxide Level 24 Anion Gap 10 Blood Urea Nitrogen 6 L Creatinine 1.00 Glucose Level 85 Calcium Level 8.4 Total Bilirubin 0.0 L Direct Bilirubin 0.00 Indirect Bilirubin 0.0 Aspartate Amino Transf (AST/SGOT) 15 Alanine Aminotransferase (ALT/SGPT) 32 Alkaline Phosphatase 79 Total Protein 5.9 L Albumin 2.8 L Globulin 3.10 Albumin/Globulin Ratio 0.90 Medications Medications Current Medications Acetaminophen (Tylenol Tab) 650 mg Q6H PRN PO PAIN LEVEL 1-3 OR FEVER Last administered on 11/24/16 15:31; Admin Dose 650 MG; Start 11/23/16 at 18:00 Acetaminophen/ Hydrocodone Bitart ([place] (5/325)) 1 tab Q6H PRN PO MODERATE PAIN LEVEL 4-6; Start 11/23/16 at 18:00 Docusate Sodium (Colace) 100 mg Q12H PRN PO CONSTIPATION Last administered on 11/26/16 05:30; Admin Dose 100 MG; Start 11/23/16 at 18:00 Magnesium Hydroxide (Milk Of Mag) 30 ml DAILY PRN PO CONSTIPATION Last administered on 11/24/16 21:33; Admin Dose 30 ML; Start 11/23/16 at 18:00 Sodium Biphosphate/ Sodium Phosphate (Fleet Enema) 133 ml DAILY PRN [place] CONSTIPATION; Start 11/23/16 at 18:00 Heparin Sodium (Porcine) (Heparin (5000 Units/0.5 ml)) 5,000 unit Q12 SC Last administered on 11/26/16 10:06; Admin Dose 5,000 UNIT; Start 11/23/16 at 21:00 Lorazepam 0.5 mg 0.5 mg Q6H PRN IV ANXIETY Last administered on 11/24/16 23: 16; Admin Dose 0.5 MG; Start 11/23/16 at 18:00 Sodium Chloride (NS) 1,000 ml @ 125 mls/hr Q8H IV Last administered on 05:32; Admin Dose 125 MLS/HR; Start 11/23/16 at 17:44 Hydralazine HCl 10 mg 10 mg Q6H PRN IV ELEVATED BLOOD PRESSURE; Start 11/23/16 at 18:00 Ceftriaxone Sodium (Rocephin) 50 ml @ 100 mls/hr Q24H IVPB Last administered on 11/25/16 18:04; Admin Dose 100 MLS/HR; Start 11/23/16 at 18:00 Nitroglycerin (Nitroglycerin (Sl Tab) 0.4 Mg) 1 tab Q5M PRN SL ANGINA; Start 11/23/16 at 18:00 Morphine Sulfate (morphine) 3 mg Q3H PRN IV SEVERE PAIN LEVEL 7-10 Last administered on 11/24/16 22:51; Admin Dose 3 MG; Start 11/24/16 at 12:00 Trimethobenzamide HCl (Tigan) 200 mg Q6H PRN IM NAUSEA AND/OR VOMITING; Start 11/24/16 at 12:30 Hydromorphone HCl (Dilaudid) 2 mg Q3 PRN IV PAIN Last administered on 09:01; Admin Dose 2 MG; Start 11/25/16 at 12:30 Cyclobenzaprine HCl 10 mg 10 mg TID PO Last administered on 11/26/16 09:59; Admin Dose 10 MG; Start 11/25/16 at 13:00 Ondansetron HCl/ Sodium Chloride (Zofran Inj/NS) 54 ml @ 216 mls/hr Q6H PRN IV NAUSEA AND/OR VOMITING Last administered on 11/26/16 05:37; Admin Dose 216 MLS/HR; Start 11/25/16 at 13:00 Tamsulosin HCl (Flomax) 0.4 mg BID PO Last administered on 11/26/16 09:59; Admin Dose 0.4 MG; Start 10/11/17 at 21:00 ZORAIDA BANUELOS Nov 26, 2016 12:02
[2016-11-26 14:00] VITALS: BP 121/61; RESP 19
--- NOTE | 2016-11-26 15:35 | CONS ---
Date/Time of Note Date/Time of Note DATE: 11/26/16 TIME: 15:32 Assessment/Plan Assessment/Plan Chief Complaint/Hosp Course IMPRESSION: 1. The patient has renal colic. 2. Left ureteral stone. 3. Acute kidney injury leading to hydronephrosis and kidney stone.better 4. The patient has hematuria. plan po fluid flomax iv fluid ck labs Problems: Consultation Date/Type/Reason Admit Date/Time Nov 25, 2016 at 21:41 Initial Consult Date Type of Consultation: renal 24 HR Interval Summary Constitutional: no complaints Exam/Review of Systems Vital Signs Vitals Vital Signs Date Time Temp Pulse Resp B/P Pulse Ox O2 Delivery O2 Flow Rate FiO2 11/26/16 08:20 Nasal Cannula 2.0 11/26/16 07:10 98.0 76 19 118/56 98 Intake and Output 11/25/16 11/25/16 11/26/16 15:00 23:00 07:00 Intake Total 3400 ml Output Total 1150 ml Balance 3400 ml -1150 ml Exam Constitutional: other (weakness,pain+) Neck: supple Respiratory: clear to auscultation Cardiovascular: regular rate and rhythm Gastrointestinal: soft Musculoskeletal: nl extremities to inspection Extremities: normal pulses Results Result Diagram: 11/26/16 0421 11/26/16 0421 Results 24 hrs Laboratory Tests Test 11/26/16 04:21 White Blood Count 7.9 Red Blood Count 3.59 L Hemoglobin 9.0 L Hematocrit 29.5 L Mean Corpuscular Volume 82.2 Mean Corpuscular Hemoglobin 25.1 L Mean Corpuscular Hemoglobin Concent 30.5 L Red Cell Distribution Width 18.6 H Platelet Count 166 Mean Platelet Volume 9.7 Neutrophils % 78.5 H Lymphocytes % 12.4 L Monocytes % 8.2 Eosinophils % 0.1 Basophils % 0.4 Nucleated Red Blood Cells % 0.0 Neutrophils # 6.2 Lymphocytes # 1.0 Monocytes # 0.7 Eosinophils # 0.0 Basophils # 0.0 Nucleated Red Blood Cells # 0.0 Sodium Level 136 Potassium Level 3.7 Chloride Level 106 Carbon Dioxide Level 24 Anion Gap 10 Blood Urea Nitrogen 6 L Creatinine 1.00 Glucose Level 85 Calcium Level 8.4 Total Bilirubin 0.0 L Direct Bilirubin 0.00 Indirect Bilirubin 0.0 Aspartate Amino Transf (AST/SGOT) 15 Alanine Aminotransferase (ALT/SGPT) 32 Alkaline Phosphatase 79 Total Protein 5.9 L Albumin 2.8 L Globulin 3.10 Albumin/Globulin Ratio 0.90 Medications Medications Current Medications Acetaminophen (Tylenol Tab) 650 mg Q6H PRN PO PAIN LEVEL 1-3 OR FEVER Last administered on 11/24/16 15:31; Admin Dose 650 MG; Start 11/23/16 at 18:00 Acetaminophen/ Hydrocodone Bitart ([place] (5/325)) 1 tab Q6H PRN PO MODERATE PAIN LEVEL 4-6; Start 11/23/16 at 18:00 Docusate Sodium (Colace) 100 mg Q12H PRN PO CONSTIPATION Last administered on 11/26/16 05:30; Admin Dose 100 MG; Start 11/23/16 at 18:00 Magnesium Hydroxide (Milk Of Mag) 30 ml DAILY PRN PO CONSTIPATION Last administered on 11/24/16 21:33; Admin Dose 30 ML; Start 11/23/16 at 18:00 Sodium Biphosphate/ Sodium Phosphate (Fleet Enema) 133 ml DAILY PRN [place] CONSTIPATION; Start 11/23/16 at 18:00 Heparin Sodium (Porcine) (Heparin (5000 Units/0.5 ml)) 5,000 unit Q12 SC Last administered on 11/26/16 10:06; Admin Dose 5,000 UNIT; Start 11/23/16 at 21:00 Lorazepam 0.5 mg 0.5 mg Q6H PRN IV ANXIETY Last administered on 11/24/16 23: 16; Admin Dose 0.5 MG; Start 11/23/16 at 18:00 Sodium Chloride (NS) 1,000 ml @ 125 mls/hr Q8H IV Last administered on 14:00; Admin Dose 125 MLS/HR; Start 11/23/16 at 17:44 Hydralazine HCl 10 mg 10 mg Q6H PRN IV ELEVATED BLOOD PRESSURE; Start 11/23/16 at 18:00 Ceftriaxone Sodium (Rocephin) 50 ml @ 100 mls/hr Q24H IVPB Last administered on 11/25/16 18:04; Admin Dose 100 MLS/HR; Start 11/23/16 at 18:00 Nitroglycerin (Nitroglycerin (Sl Tab) 0.4 Mg) 1 tab Q5M PRN SL ANGINA; Start 11/23/16 at 18:00 Morphine Sulfate (morphine) 3 mg Q3H PRN IV SEVERE PAIN LEVEL 7-10 Last administered on 11/24/16 22:51; Admin Dose 3 MG; Start 11/24/16 at 12:00 Trimethobenzamide HCl (Tigan) 200 mg Q6H PRN IM NAUSEA AND/OR VOMITING; Start 11/24/16 at 12:30 Hydromorphone HCl (Dilaudid) 2 mg Q3 PRN IV PAIN Last administered on 09:01; Admin Dose 2 MG; Start 11/25/16 at 12:30 Cyclobenzaprine HCl 10 mg 10 mg TID PO Last administered on 11/26/16 09:59; Admin Dose 10 MG; Start 11/25/16 at 13:00 Ondansetron HCl/ Sodium Chloride (Zofran Inj/NS) 54 ml @ 216 mls/hr Q6H PRN IV NAUSEA AND/OR VOMITING Last administered on 11/26/16 05:37; Admin Dose 216 MLS/HR; Start 11/25/16 at 13:00 Tamsulosin HCl (Flomax) 0.4 mg BID PO Last administered on 11/26/16 09:59; Admin Dose 0.4 MG; Start 11/25/16 at 21:00 ISAURA HAINES MD Nov 26, 2016 15:35
[2016-11-26] MEDS: CEFTRIAXONE 1 GM/50 ML (PMX) 50 ML IVPB SCH (18:56)
[2016-11-26 20:10] VITALS: BP 179/86; RESP 22
[2016-11-26 20:30] VITALS: BP 171/82; PULSE 79; RESP 17
--- NOTE | 2016-11-26 20:40 | PN ---
DATE: 11/26/2016 SUBJECTIVE: Left flank pain, distal left ureteral stone. The patient had the pain around 11:00 tod ay and then this evening had mild pain. She does have a small stone in the distal left ureter at th e ureteropelvic junction measuring about 3 mm, and the patient has not passed it yet. KUB today did show that the stone is still in the same location. OBJECTIVE FINDINGS: Her temperature is 98.2, pulse is 71, respirations 19, blood pressure 121/61. She does have left flank tenderness. LABORATORY DATA: Her CBC shows a white count of 7.9, hemoglobin 9.0, hematocrit 29.5. BUN is 6, cr eatinine 1.0. Electrolytes are normal. The urine culture did show Smita glabrata, 20,000 to 30,0 00 colonies per mL. The patient had a KUB today and Dr. Poole read it as there is a stone overlying the left ureterovesical junction measuring 2 mm. She does have gallstones. Otherwise, unremarkable study for the KUB. IMPRESSION: Distal left ureteral stone about 2 mm in size. The patient is comfortable at present; however, the nurses have been trying to start an IV on her to give her the antibiotics and she still has some nausea. Recommendation is to continue her antibiotic. Continue the tamsulosin, and we bert y put her on medication for her yeast infection. Dictated By: NIEVES SOMMERS/BERNARDO Conf#: [id number] DID#: [id number]
[2016-11-26] MEDS: VORICONAZOLE 200 MG TAB PO SCH (21:45)
[2016-11-26 21:48] VITALS: BP 172/88; RESP 22
[2016-11-26 23:06] VITALS: BP 139/65; PULSE 81; RESP 18
[2016-11-27] MEDS: SOD CHLORIDE 0.9% 1,000 ML IV SCH ×2 (01:17→10:21)
[2016-11-27 05:16] LABS: BASOPHILS % 0.5 % (0.0-2.0); EOSINOPHILS # 0.1 10^3/ul (0.0-0.5); EOSINOPHILS % 1.3 % (0.0-7.0); HEMATOCRIT 27.6 % (37.0-47.0); HEMOGLOBIN 8.5 g/dl (12.0-16.0); LYMPHOCYTES # 1.3 10^3/ul (0.8-2.9); LYMPHOCYTES % 20.4 % (15.0-51.0); MEAN CORPUSCULAR HEMOGLOBIN 25.2 pg (29.0-33.0); MEAN CORPUSCULAR HGB CONC 30.8 g/dl (32.0-37.0); MEAN CORPUSCULAR VOLUME 81.9 fl (82.0-101.0); MEAN PLATELET VOLUME 10.1 fl (7.4-10.4); MONOCYTE # 0.7 10^3/ul (0.3-0.9); MONOCYTES % 11.1 % (0.0-11.0); NEUTROPHIL # 4.1 10^3/ul (1.6-7.5); NEUTROPHILS % 66.4 % (39.0-77.0); PLATELET COUNT 176 10^3/UL (140-415); RED BLOOD COUNT 3.37 10^6/ul (4.20-5.40); RED CELL DISTRIBUTION WIDTH 18.6 % (11.5-14.5); WHITE BLOOD COUNT 6.2 10^3/ul (4.8-10.8)
[2016-11-27 05:44] LABS: CALCIUM 8.5 mg/dl (8.4-10.2); CREATININE 0.9 mg/dl (0.44-1.00); POTASSIUM 3.4 mmol/L (3.5-5.1)
[2016-11-27 08:00] VITALS: BP 138/75; PULSE 75; RESP 16
[2016-11-27] MEDS: TAMSULOSIN (SR) 0.4 MG CAP PO SCH (08:34)
[2016-11-27] MEDS: VORICONAZOLE 200 MG TAB PO SCH (08:34)
[2016-11-27] MEDS: CYCLOBENZAPRINE 10 MG TAB PO SCH ×2 (08:34→13:00)
[2016-11-27] MEDS: HEPARIN 5,000 UNIT/0.5 ML VIAL SC SCH (08:35)
[2016-11-27] MEDS: ACETAMINOPHEN 325 MG TAB PO PRN (08:38)
--- NOTE | 2016-11-27 10:22 | RADRPT ---
PROCEDURE: XR Abdomen. CLINICAL INDICATION: Ureteral calculus TECHNIQUE: Two AP views of the abdomen were obtained COMPARISON: CT abdomen and pelvis dated 11/25/2016 and x-ray abdomen dated 11/26/2016 FINDINGS: There is a nonobstructive bowel gas pattern. Multiple phleboliths are seen within the pelvis. 2 mm c alculus previously noted at the left UVJ is not visualized. There is a lamellated gallstone within t he right upper quadrant. The osseous structures are unremarkable. IMPRESSION: 1. The 2 mm calculus previously noted at the left UVJ is no longer visualized. 2. Multiple additional pelvic phleboliths, unchanged. 3. Cholelithiasis. RPTAT: HH .Shari Ibrahim MD, MD Date Time Electronically viewed and signed by .Shari Ibrahim MD, on 11/27/2016 10:22 .G/
[2016-11-27 11:23] LABS: ADD UMIC YES; UR ASCORBIC ACID NEGATIVE (NEGATIVE); UR BACTERIA FEW /HPF (NONE SEEN); UR BILIRUBIN (Dip) NEGATIVE (NEGATIVE); UR BLOOD (Dip) 3+ mg/dL (NEGATIVE); UR CLARITY CLEAR (CLEAR); UR COLOR YELLOW (YELLOW); UR GLUCOSE (Dip) NEGATIVE (NEGATIVE); UR KETONES (Dip) 1+ mg/dL (NEGATIVE); UR LEUKOCYTE ESTERASE (Dip) NEGATIVE Leu/ul (NEGATIVE); UR NITRITE (Dip) NEGATIVE (NEGATIVE); UR RBC > 182 /HPF (0-5); UR SPECIFIC GRAVITY (Dip) 1.004 (1.003-1.030); UR TOTAL PROTEIN (Dip) NEGATIVE (NEGATIVE); UR UROBILINOGEN (Dip) NEGATIVE (NEGATIVE)
--- NOTE | 2016-11-27 11:48 | PN ---
Date/Time of Note Date/Time of Note DATE: 11/27/16 TIME: 11:38 Assessment/Plan VTE Prophylaxis VTE Prophylaxis Intervention: heparin Lines/Catheters IV C[facility]ter Type (from [facility]): Peripheral IV Urinary Cath still in place: No Assessment/Plan Chief Complaint/Hosp Course ASSESSMENT AND PLAN: 51-year-old female comes in with left flank pain, nausea, signs of kidney stone and hydronephrosis. 1. Left-sided kidney stone- pt may have passed stone. Had + fever however last night, however, but none this AM. Ucx = + strep > 100,000 cfu + mohit glabarta. -continue IV fluids and encourage her drink fluids as well. -Continue Flomax and pain control medications, CT and KUB results noted. Continue muscle relaxant as needed, Dilaudid Dilaudid medications as well. Will discuss with urology team about whether to perform cystoscopy at this point or continue medical treatment - continue broad-spectrum antibiotics. Follow up final culture results. Hopefully patient can pass the stone. -Antiemetic medicines 2. History of breast cancer. Monitor for now. 3. Smoking history. Counseled on cessation. 4. Deep vein thrombosis prophylaxis. Heparin subcutaneous. 5. ARF improved, continue: IVF's, f/u renal consult rec's Problems: Exam/Review of Systems Vital Signs Vitals Vital Signs Date Time Temp Pulse Resp B/P Pulse Ox O2 Delivery O2 Flow Rate FiO2 11/26/16 23:06 99.6 81 18 139/65 97 Room Air 11/26/16 08:20 2.0 Intake and Output 11/26/16 11/26/16 11/27/16 15:00 23:00 07:00 Intake Total 1000 ml 464 ml 2300 ml Output Total 1700 ml 1700 ml Balance 1000 ml -1236 ml 600 ml Exam GENERAL: Patient is lying in bed, writhing in pain HEENT: Pupils equal, round, react to light. Extraocular muscles intact. NECK: Supple. No thyromegaly. LUNGS: Clear to auscultation bilaterally. CARDIOVASCULAR: S1, S2. No rubs, gallops. ABDOMEN: +tenderness to palpation, left flank area. Otherwise, no rebound or guarding. Normal bowel sounds. MUSCULOSKELETAL: No lower extremity bilaterally. NEUROLOGIC: No focal deficits. Results Result Diagram: 11/27/16 0434 11/27/16433 Results 24 hrs Laboratory Tests Test 11/27/16 04:34 11/27/16 10:50 White Blood Count 6.2 # Red Blood Count 3.37 L Hemoglobin 8.5 L Hematocrit 27.6 L Mean Corpuscular Volume 81.9 L Mean Corpuscular Hemoglobin 25.2 L Mean Corpuscular Hemoglobin Concent 30.8 L Red Cell Distribution Width 18.6 H Platelet Count 176 Mean Platelet Volume 10.1 Neutrophils % 66.4 Lymphocytes % 20.4 Monocytes % 11.1 H Eosinophils % 1.3 Basophils % 0.5 Nucleated Red Blood Cells % 0.0 Neutrophils # 4.1 Lymphocytes # 1.3 Monocytes # 0.7 Eosinophils # 0.1 Basophils # 0.0 Nucleated Red Blood Cells # 0.0 Sodium Level 143 Potassium Level 3.4 L Chloride Level 112 H Carbon Dioxide Level 24 Anion Gap 10 Blood Urea Nitrogen 4 L Creatinine 0.90 Glucose Level 77 Calcium Level 8.5 Urine Color YELLOW Urine Clarity CLEAR Urine pH 6.0 Urine Specific [place] 1.004 Urine Ketones 1+ H Urine Nitrite NEGATIVE Urine Bilirubin NEGATIVE Urine Urobilinogen NEGATIVE Urine Leukocyte Esterase NEGATIVE Urine Microscopic RBC > 182 H Urine Microscopic WBC 27 H Urine Bacteria FEW A Urine Hemoglobin 3+ H Urine Glucose NEGATIVE Urine Total Protein NEGATIVE Medications Medications Current Medications Acetaminophen (Tylenol Tab) 650 mg Q6H PRN PO PAIN LEVEL 1-3 OR FEVER Last administered on 11/27/16 08:38; Admin Dose 650 MG; Start 11/23/16 at 18:00 Acetaminophen/ Hydrocodone Bitart ([place] (5/325)) 1 tab Q6H PRN PO MODERATE PAIN LEVEL 4-6; Start 11/23/16 at 18:00 Docusate Sodium (Colace) 100 mg Q12H PRN PO CONSTIPATION Last administered on 11/26/16 05:30; Admin Dose 100 MG; Start 11/23/16 at 18:00 Magnesium Hydroxide (Milk Of Mag) 30 ml DAILY PRN PO CONSTIPATION Last administered on 11/24/16 21:33; Admin Dose 30 ML; Start 11/23/16 at 18:00 Sodium Biphosphate/ Sodium Phosphate (Fleet Enema) 133 ml DAILY PRN [place] CONSTIPATION Last administered on 11/26/16 18:56; Admin Dose 133 ML; Start at 18:00 Heparin Sodium (Porcine) (Heparin (5000 Units/0.5 ml)) 5,000 unit Q12 SC Last administered on 11/26/16 21:50; Admin Dose 5,000 UNIT; Start 11/23/16 at 21:00 Lorazepam 0.5 mg 0.5 mg Q6H PRN IV ANXIETY Last administered on 11/24/16 23: 16; Admin Dose 0.5 MG; Start 11/23/16 at 18:00 Sodium Chloride (NS) 1,000 ml @ 125 mls/hr Q8H IV Last administered on 01:17; Admin Dose 125 MLS/HR; Start 11/23/16 at 17:44 Hydralazine HCl 10 mg 10 mg Q6H PRN IV ELEVATED BLOOD PRESSURE; Start 11/23/16 at 18:00 Ceftriaxone Sodium (Rocephin) 50 ml @ 100 mls/hr Q24H IVPB Last administered on 11/26/16 18:56; Admin Dose 100 MLS/HR; Start 11/23/16 at 18:00 Nitroglycerin (Nitroglycerin (Sl Tab) 0.4 Mg) 1 tab Q5M PRN SL ANGINA; Start 11/23/16 at 18:00 Morphine Sulfate (morphine) 3 mg Q3H PRN IV SEVERE PAIN LEVEL 7-10 Last administered on 11/24/16 22:51; Admin Dose 3 MG; Start 11/24/16 at 12:00 Trimethobenzamide HCl (Tigan) 200 mg Q6H PRN IM NAUSEA AND/OR VOMITING; Start 11/24/16 at 12:30 Hydromorphone HCl (Dilaudid) 2 mg Q3 PRN IV PAIN Last administered on 09:01; Admin Dose 2 MG; Start 11/25/16 at 12:30 Cyclobenzaprine HCl 10 mg 10 mg TID PO Last administered on 11/27/16 08:34; Admin Dose 10 MG; Start 11/25/16 at 13:00 Ondansetron HCl/ Sodium Chloride (Zofran Inj/NS) 54 ml @ 216 mls/hr Q6H PRN IV NAUSEA AND/OR VOMITING Last administered on 11/26/16 21:46; Admin Dose 216 MLS/HR; Start 11/25/16 at 13:00 Tamsulosin HCl (Flomax) 0.4 mg BID PO Last administered on 11/27/16 08:34; Admin Dose 0.4 MG; Start 11/25/16 at 21:00 Voriconazole (Vfend) 200 mg BID PO Last administered on 11/27/16 08:34; Admin Dose 200 MG; Start 11/26/16 at 21:00 ZORAIDA BANUELOS Nov 27, 2016 11:47
[2016-11-27] MEDS ORDERED: DOXYCYCLINE 100 MG in SOD CHLORIDE 0.9% 250 ML IVPB SCH (12:00)
--- NOTE | 2016-11-27 12:13 | PDOCDIS ---
Discharge Instructions CONDITION Patient Condition: Stable HOME CARE INSTRUCTIONS: Diet Instructions: Regular ACTIVITY: Activity Restrictions: Slowly Increase Activity Rest between Activity Avoid heavy lifting Bathing Restrictions: Shower FOLLOW UP/APPOINTMENTS Follow-up Plan Please take your medications as prescribed. Please follow-up with your regular doctor in the clinic in the next 1 week. If you experience any further abdominal pain, headaches, fevers or chills, please go to ER, call 911, or call primary care doctor. ZORAIDA BANUELOS Nov 27, 2016 12:13
[2016-11-27] MEDS ORDERED: OXYC-279 PO (12:16)
[2016-11-27] MEDS ORDERED: VORI200T9 PO (12:16)
[2016-11-27] MEDS ORDERED: ZOF8 PO (12:16)
[2016-11-27] MEDS ORDERED: DOXY100T20 PO (12:16)
[2016-11-27] MEDS ORDERED: TAMS-14 PO (12:16)
--- NOTE | 2016-11-27 12:57 | DS ---
DATE OF ADMISSION: 11/25/2016 DATE OF DISCHARGE: 11/27/2016 HISTORY OF PRESENT ILLNESS: The patient came in with abdominal pain and nausea. She was diagnosed with a left-sided kidney stone. She was admitted, seen by urology team and renal team during this hospital stay. She was treated conservatively with IV fluids, Flomax, antiemetics and pain control medications. She also placed on broad-spectrum antibiotics. Over the course of hospital stay her symptoms slowly improved. However, she did have significant pain while she was trying to pass the stone. She had some mild hematuria as well. Although it is possible she could also be having menstruation as well. In any event, serial abdominal imaging studies were performed including x-rays. The last KUB performed on the day of discharge showed no stone. Urology came and saw the patient the day of discharge, as the patient had stated that she had passed 2 small brown particles, thought to be the stone and was having less pain symptoms at that time. However, urology was not immediately sure if these were stones not. In any event, the patient's symptoms improved. She did have some mild fever almost within the 24 hours of the day of discharge, but no fevers by the time of discharge and she was given strict return precautions. Her urine cultures were positive both for Smita glabrata and for strep species and antibiotics were adjusted accordingly. Because the patient is clinically improved, she is ambulating, tolerating a diet, she will be discharged home today in improved condition. She has been given strict return precautions in the event she develops any further abdominal pain, headaches, or dizziness or fevers or hematuria and told to go to the ER, call primary care doctor, or call 911 if necessary. DISCHARGE MEDICATIONS: She will go home with the following medications: 1. Doxycycline 100 mg p.o. b.i.d. for 7 days. 2. Zofran 8 mg p.o. q.6 hours p.r.n. 3. Fluconazole 200 mg p.o. b.i.d. for 7 days. 4. Percocet 5/325 one tablet p.o. q.4 hours p.r.n. 5. Flomax 0.4 mg p.o. q.12 hours x7 days. FINAL DIAGNOSES: 1. Abdominal pain and nausea, secondary to left-sided kidney stone. Improving. 2. History of prior breast cancer. 3. Acute renal insufficiency, improved. 4. History of smoking, counseled on cessation. 5. History of gallstones. 6. Prior history of mastectomy 20 years ago. TIME SPENT DISCHARING PATIENT: 50 minutes. Dictated By: Harjit Mckee MD /lily/chelsea /Document#: [id number]
--- NOTE | 2016-11-27 13:09 | PN ---
DATE: 11/27/2016 SUBJECTIVE: The patient has a stone that measures about 2 mm in the distal left ureter at the urete rovesical junction. At the present, she is feeling more comfortable. She has no pain and she howev er, complains of headache. During the night she passed some debris and in fact the issue is that alexei kendrick does have her period too so that could be mixed with her period. OBJECTIVE: VITAL SIGNS: Temperature is 98.6 and the pulse is 75, respirations 16, blood pressure 138/75. ABDOMEN: Soft. There is no tenderness at the present. LABORATORY DATA: The CBC shows a white count of 6.2, hemoglobin 8.5, hematocrit 27.6. BUN is 4, cr eatinine 0.9, and the sodium 143, potassium 3.4, chloride 112, CO2 24. Urine culture that was done showed Smita glabrata. IMPRESSION: Repeat KUB today did not show the stone, so she may well have passed it, especially antolin t she has no more pain, but the stone has not been recovered. The material that she had in the stra iner were all blood and blood clots. There was no stone that could be felt or seen RECOMMENDATION: The patient could be discharged home today. She should drink a lot of water, josephine nue to strain her urine and also she should be on antibiotic as well as on antifungal and I have dis cussed that with Dr. Mckee and he will write her the prescriptions and she should follow up with her primary care physician and should there be any need for her to come and see me, she needs to have a referral from her IPA. Dictated By: NIEVES SOMMERS/BERNARDO Conf#: [id number] DID#: [id number]
--- NOTE | 2016-11-27 13:33 | CONS ---
Date/Time of Note Date/Time of Note DATE: 11/27/16 TIME: 13:33 Assessment/Plan Assessment/Plan Chief Complaint/Hosp Course IMPRESSION: 1. The patient has renal colic. 2. Left ureteral stone. 3. Acute kidney injury leading to hydronephrosis and kidney stone.better 4. The patient has hematuria. plan po fluid flomax iv fluid ck labs Problems: Consultation Date/Type/Reason Admit Date/Time Nov 25, 2016 at 21:41 Type of Consultation: renal 24 HR Interval Summary Constitutional: no complaints, other (passed stone) Exam/Review of Systems Vital Signs Vitals Vital Signs Date Time Temp Pulse Resp B/P Pulse Ox O2 Delivery O2 Flow Rate FiO2 11/27/16 08:00 98.6 75 16 138/75 96 Room Air 11/26/16 08:20 2.0 Intake and Output 11/26/16 11/26/16 11/27/16 15:00 23:00 07:00 Intake Total 1000 ml 464 ml 2300 ml Output Total 1700 ml 1700 ml Balance 1000 ml -1236 ml 600 ml Results Result Diagram: 11/27/16 0434 11/27/16 0434 Results 24 hrs Laboratory Tests Test 11/27/16 04:34 11/27/16 10:50 White Blood Count 6.2 # Red Blood Count 3.37 L Hemoglobin 8.5 L Hematocrit 27.6 L Mean Corpuscular Volume 81.9 L Mean Corpuscular Hemoglobin 25.2 L Mean Corpuscular Hemoglobin Concent 30.8 L Red Cell Distribution Width 18.6 H Platelet Count 176 Mean Platelet Volume 10.1 Neutrophils % 66.4 Lymphocytes % 20.4 Monocytes % 11.1 H Eosinophils % 1.3 Basophils % 0.5 Nucleated Red Blood Cells % 0.0 Neutrophils # 4.1 Lymphocytes # 1.3 Monocytes # 0.7 Eosinophils # 0.1 Basophils # 0.0 Nucleated Red Blood Cells # 0.0 Sodium Level 143 Potassium Level 3.4 L Chloride Level 112 H Carbon Dioxide Level 24 Anion Gap 10 Blood Urea Nitrogen 4 L Creatinine 0.90 Glucose Level 77 Calcium Level 8.5 Urine Color YELLOW Urine Clarity CLEAR Urine pH 6.0 Urine Specific [place] 1.004 Urine Ketones 1+ H Urine Nitrite NEGATIVE Urine Bilirubin NEGATIVE Urine Urobilinogen NEGATIVE Urine Leukocyte Esterase NEGATIVE Urine Microscopic RBC > 182 H Urine Microscopic WBC 27 H Urine Bacteria FEW A Urine Hemoglobin 3+ H Urine Glucose NEGATIVE Urine Total Protein NEGATIVE Medications Medications Current Medications Acetaminophen (Tylenol Tab) 650 mg Q6H PRN PO PAIN LEVEL 1-3 OR FEVER Last administered on 11/27/16 08:38; Admin Dose 650 MG; Start 11/23/16 at 18:00 Acetaminophen/ Hydrocodone Bitart ([place] (5/325)) 1 tab Q6H PRN PO MODERATE PAIN LEVEL 4-6; Start 11/23/16 at 18:00 Docusate Sodium (Colace) 100 mg Q12H PRN PO CONSTIPATION Last administered on 11/26/16 05:30; Admin Dose 100 MG; Start 11/23/16 at 18:00 Magnesium Hydroxide (Milk Of Mag) 30 ml DAILY PRN PO CONSTIPATION Last administered on 11/24/16 21:33; Admin Dose 30 ML; Start 11/23/16 at 18:00 Sodium Biphosphate/ Sodium Phosphate (Fleet Enema) 133 ml DAILY PRN [place] CONSTIPATION Last administered on 11/26/16 18:56; Admin Dose 133 ML; Start at 18:00 Heparin Sodium (Porcine) (Heparin (5000 Units/0.5 ml)) 5,000 unit Q12 SC Last administered on 11/26/16 21:50; Admin Dose 5,000 UNIT; Start 11/23/16 at 21:00 Lorazepam 0.5 mg 0.5 mg Q6H PRN IV ANXIETY Last administered on 11/24/16 23: 16; Admin Dose 0.5 MG; Start 11/23/16 at 18:00 Sodium Chloride (NS) 1,000 ml @ 125 mls/hr Q8H IV Last administered on 01:17; Admin Dose 125 MLS/HR; Start 11/23/16 at 17:44 Hydralazine HCl (Apresoline) 10 mg Q6H PRN IV ELEVATED BLOOD PRESSURE; Start 11/23/16 at 18:00 Nitroglycerin (Nitroglycerin (Sl Tab) 0.4 Mg) 1 tab Q5M PRN SL ANGINA; Start 11/23/16 at 18:00 Morphine Sulfate (morphine) 3 mg Q3H PRN IV SEVERE PAIN LEVEL 7-10 Last administered on 11/24/16 22:51; Admin Dose 3 MG; Start 11/24/16 at 12:00 Trimethobenzamide HCl (Tigan) 200 mg Q6H PRN IM NAUSEA AND/OR VOMITING; Start 11/24/16 at 12:30 Hydromorphone HCl (Dilaudid) 2 mg Q3 PRN IV PAIN Last administered on 09:01; Admin Dose 2 MG; Start 11/25/16 at 12:30 Cyclobenzaprine HCl 10 mg 10 mg TID PO Last administered on 11/27/16 08:34; Admin Dose 10 MG; Start 11/25/16 at 13:00 Ondansetron HCl/ Sodium Chloride (Zofran Inj/NS) 54 ml @ 216 mls/hr Q6H PRN IV NAUSEA AND/OR VOMITING Last administered on 11/26/16 21:46; Admin Dose 216 MLS/HR; Start 11/25/16 at 13:00 Tamsulosin HCl (Flomax) 0.4 mg BID PO Last administered on 11/27/16 08:34; Admin Dose 0.4 MG; Start 11/25/16 at 21:00 Voriconazole 200 mg 200 mg BID PO Last administered on 11/27/16 08:34; Admin Dose 200 MG; Start 11/26/16 at 21:00 Doxycycline Hyclate/Sodium Chloride (Vibramycin/NS) 250 ml @ 250 mls/hr Q12 IVPB ; Start 11/27/16 at 12:00 ISAURA HAINES MD Nov 27, 2016 13:33
--- NOTE | 2016-11-27 13:35 | CONS ---
Date/Time of Note Date/Time of Note DATE: 11/27/16 TIME: 13:34 Assessment/Plan Assessment/Plan Chief Complaint/Hosp Course IMPRESSION: 1. The patient has renal colic.better passed stone 2. Left ureteral stone. passed 3. Acute kidney injury leading to hydronephrosis and kidney stone.better 4. The patient has hematuria.better 5 hypokalemia plan po fluid flomax iv fluid kcl Problems: Consultation Date/Type/Reason Admit Date/Time Nov 25, 2016 at 21:41 Type of Consultation: renal 24 HR Interval Summary Constitutional: no complaints Exam/Review of Systems Vital Signs Vitals Vital Signs Date Time Temp Pulse Resp B/P Pulse Ox O2 Delivery O2 Flow Rate FiO2 11/27/16 08:00 98.6 75 16 138/75 96 Room Air 11/26/16 08:20 2.0 Intake and Output 11/26/16 11/26/16 11/27/16 15:00 23:00 07:00 Intake Total 1000 ml 464 ml 2300 ml Output Total 1700 ml 1700 ml Balance 1000 ml -1236 ml 600 ml Exam Respiratory: clear to auscultation Cardiovascular: regular rate and rhythm Gastrointestinal: soft Musculoskeletal: nl extremities to inspection Extremities: normal pulses Results Result Diagram: 11/27/16 0434 11/27/16 0434 Results 24 hrs Laboratory Tests Test 11/27/16 04:34 11/27/16 10:50 White Blood Count 6.2 # Red Blood Count 3.37 L Hemoglobin 8.5 L Hematocrit 27.6 L Mean Corpuscular Volume 81.9 L Mean Corpuscular Hemoglobin 25.2 L Mean Corpuscular Hemoglobin Concent 30.8 L Red Cell Distribution Width 18.6 H Platelet Count 176 Mean Platelet Volume 10.1 Neutrophils % 66.4 Lymphocytes % 20.4 Monocytes % 11.1 H Eosinophils % 1.3 Basophils % 0.5 Nucleated Red Blood Cells % 0.0 Neutrophils # 4.1 Lymphocytes # 1.3 Monocytes # 0.7 Eosinophils # 0.1 Basophils # 0.0 Nucleated Red Blood Cells # 0.0 Sodium Level 143 Potassium Level 3.4 L Chloride Level 112 H Carbon Dioxide Level 24 Anion Gap 10 Blood Urea Nitrogen 4 L Creatinine 0.90 Glucose Level 77 Calcium Level 8.5 Urine Color YELLOW Urine Clarity CLEAR Urine pH 6.0 Urine Specific [place] 1.004 Urine Ketones 1+ H Urine Nitrite NEGATIVE Urine Bilirubin NEGATIVE Urine Urobilinogen NEGATIVE Urine Leukocyte Esterase NEGATIVE Urine Microscopic RBC > 182 H Urine Microscopic WBC 27 H Urine Bacteria FEW A Urine Hemoglobin 3+ H Urine Glucose NEGATIVE Urine Total Protein NEGATIVE Medications Medications Current Medications Acetaminophen (Tylenol Tab) 650 mg Q6H PRN PO PAIN LEVEL 1-3 OR FEVER Last administered on 11/27/16 08:38; Admin Dose 650 MG; Start 11/23/16 at 18:00 Acetaminophen/ Hydrocodone Bitart ([place] (5/325)) 1 tab Q6H PRN PO MODERATE PAIN LEVEL 4-6; Start 11/23/16 at 18:00 Docusate Sodium (Colace) 100 mg Q12H PRN PO CONSTIPATION Last administered on 11/26/16 05:30; Admin Dose 100 MG; Start 11/23/16 at 18:00 Magnesium Hydroxide (Milk Of Mag) 30 ml DAILY PRN PO CONSTIPATION Last administered on 11/24/16 21:33; Admin Dose 30 ML; Start 11/23/16 at 18:00 Sodium Biphosphate/ Sodium Phosphate (Fleet Enema) 133 ml DAILY PRN [place] CONSTIPATION Last administered on 11/26/16 18:56; Admin Dose 133 ML; Start at 18:00 Heparin Sodium (Porcine) (Heparin (5000 Units/0.5 ml)) 5,000 unit Q12 SC Last administered on 11/26/16 21:50; Admin Dose 5,000 UNIT; Start 11/23/16 at 21:00 Lorazepam 0.5 mg 0.5 mg Q6H PRN IV ANXIETY Last administered on 11/24/16 23: 16; Admin Dose 0.5 MG; Start 11/23/16 at 18:00 Sodium Chloride (NS) 1,000 ml @ 125 mls/hr Q8H IV Last administered on 01:17; Admin Dose 125 MLS/HR; Start 11/23/16 at 17:44 Hydralazine HCl (Apresoline) 10 mg Q6H PRN IV ELEVATED BLOOD PRESSURE; Start 11/23/16 at 18:00 Nitroglycerin (Nitroglycerin (Sl Tab) 0.4 Mg) 1 tab Q5M PRN SL ANGINA; Start 11/23/16 at 18:00 Morphine Sulfate (morphine) 3 mg Q3H PRN IV SEVERE PAIN LEVEL 7-10 Last administered on 11/24/16 22:51; Admin Dose 3 MG; Start 11/24/16 at 12:00 Trimethobenzamide HCl (Tigan) 200 mg Q6H PRN IM NAUSEA AND/OR VOMITING; Start 11/24/16 at 12:30 Hydromorphone HCl (Dilaudid) 2 mg Q3 PRN IV PAIN Last administered on 09:01; Admin Dose 2 MG; Start 11/25/16 at 12:30 Cyclobenzaprine HCl 10 mg 10 mg TID PO Last administered on 11/27/16 08:34; Admin Dose 10 MG; Start 11/25/16 at 13:00 Ondansetron HCl/ Sodium Chloride (Zofran Inj/NS) 54 ml @ 216 mls/hr Q6H PRN IV NAUSEA AND/OR VOMITING Last administered on 11/26/16 21:46; Admin Dose 216 MLS/HR; Start 11/25/16 at 13:00 Tamsulosin HCl (Flomax) 0.4 mg BID PO Last administered on 11/27/16 08:34; Admin Dose 0.4 MG; Start 11/25/16 at 21:00 Voriconazole 200 mg 200 mg BID PO Last administered on 11/27/16 08:34; Admin Dose 200 MG; Start 11/26/16 at 21:00 Doxycycline Hyclate/Sodium Chloride (Vibramycin/NS) 250 ml @ 250 mls/hr Q12 IVPB ; Start 11/27/16 at 12:00 ISAURA HAINES MD Nov 27, 2016 13:35
[2016-11-27] MEDS ORDERED: POTASSIUM CHLORIDE (SR) 10 MEQ TAB PO ONE (14:00)
== END 2016-11-27 13:50 | disposition home or self-care (01) | DRG 694 ==
LOC: E/R 11:34 → MS1 15:35 → OBSVTOIN 11-25 21:41
PROVIDERS: ADMIT Hospitalist; ATTEND Hospitalist
DX: N13.2 Hydronephrosis with renal and ureteral calculous obstruction (principal); N17.9 Acute kidney failure, unspecified; B37.49 Other urogenital candidiasis; N30.01 Acute cystitis with hematuria; B95.5 Unspecified streptococcus as the cause of diseases classified elsewhere; Z85.3 Personal history of malignant neoplasm of breast; Z87.891 Personal history of nicotine dependence; E87.6 Hypokalemia
CPT/HCPCS: 36415; 74000; 74176; 80048; 80053; 80061; 81001; 83036; 83735; 84100; 84439; 84443; 85025; 85610; 85730; 87081; 87086; 96374; 96375; J1940; G0378; J0360; J0696; J1170; J1644; J1885; J2060; J2270; J2405; J7030; J7050